=== PATIENT | female | born 1985 | race Two or more races ===

== ENCOUNTER 2017-10-18 15:56 | Emergency (ER) | payer MEDICAID ==
[~2017-10-18] VITALS: Ht 157.5 cm; Wt 88.5 kg
[~2017-10-18 15:56] MED LIST: CEPH250C PO; PREN-96 PO
[2017-10-18 17:12] LABS: Eosinophils # (auto) 0.1 uL; Monocytes # (auto) 0.4 uL; Red Cell Distribution Width 13.5 % (11.8-14.3); White Blood Cell 8.6 10^3/uL (4.4-10.8)
[2017-10-18 17:15] LABS: Basophils # (auto) 0 uL; Basophils % (auto) 0.5 % (0.0-2.0); Eosinophils % (auto) 1.6 % (0.0-7.0); Hematocrit 43.1 % (36.0-46.0); Lymphocytes # (auto) 2.3 uL; Lymphocytes % (auto) 27.4 % (10.0-50.0); Mean Corpuscular Hemoglobin 27.1 pg (28.0-32.0); Mean Corpuscular Hgb Conc. 32.4 g/dL (32.0-36.0); Mean Corpuscular Volume 83.4 fL (80.0-100.0); Monocytes % (auto) 4.8 % (0.0-12.0); Neutrophils # (auto) 5.6 uL; Neutrophils % (auto) 65.7 % (37.0-80.0); Nucleated Red Blood Cells % 0.1 %; Platelet Count (auto) 250 10^3/uL (140-450); Red Blood Cells 5.17 10^6/uL (4.0-5.20)
[2017-10-18 17:17] LABS: Urine Bacteria NONE SEEN /hpf (None Seen); Urine Blood TRACE /uL (Negative); Urine Specific Gravity 1.009 (1.001-1.035); Urine WBC <1 /hpf (0 - 5)
[2017-10-18 17:26] LABS: Albumin 3.7 g/dL (3.4-5.0); BUN/Creatinine Ratio 18.3; Potassium 3.9 mmol/L (3.5-5.1)
[2017-10-18 17:28] LABS: Bilirubin, Total 0.2 mg/dL (0.2-1.0); Total Protein 7.7 g/dL (6.4-8.2)
[2017-10-18 20:41] VITALS: BP 141/86
== END 2017-10-18 23:34 | disposition home or self-care (01) ==
LOC: ER 16:04
DX: N83.201 Unspecified ovarian cyst, right side (principal); Z90.49 Acquired absence of other specified parts of digestive tract; Z79.2 Long term (current) use of antibiotics; Z79.899 Other long term (current) drug therapy
CPT/HCPCS: 36415; 74176; 80053; 81001; 81025; 85025